=== PATIENT | male | born 1950 | race Caucasian/White ===

== ENCOUNTER → 2019-03-08 | Outpatient (CLI) | payer MEDICARE ==
[~2019-03-08] MED LIST: CELE200C PO; CYAN50003 PO; ESCI10TA10 PO; FOLI0.4T2 PO; IRON18TA PO; MAGN400C PO; METF500T17 PO; METH2.5T PO; SIMV20TA3 PO; Vitamin D3 PO
[2019-03-08 09:55] LABS: BASOPHILS # (AUTO) 0.05 x10^3/uL (0-0.1); BASOPHILS % (AUTO) 1 % (0-1); EOSINOPHILS # (AUTO) 0.15 x10^3/uL (0-0.4); EOSINOPHILS % (AUTO) 2 % (1-7); LYMPHOCYTES # (AUTO) 1.73 x10^3/uL (1-3.4); LYMPHOCYTES % (AUTO) 22 % (22-44); MD NO; MEAN CORPUSCULAR HGB CONC 32.8 g/dL (33.2-36.2); MEAN CORPUSCULAR VOLUME 97.5 fL (81-97); MEAN PLATELET VOLUME 8.3 fL (7.4-10.4); MONOCYTES % (AUTO) 10 % (2-9); NEUTROPHILS # (AUTO) 5.22 x10^3/uL (1.8-6.8); NEUTROPHILS % (AUTO) 66 % (42-75); PLATELET COUNT 380 x10^3/uL (130-400); RED BLOOD COUNT 4.39 x10^6/uL (4.38-5.82); RED CELL DISTRIBUTION WIDTH 14.4 % (9.4-14.8)
[2019-03-08 10:04] LABS: ALANINE AMINOTRANSFERASE 27 U/L (12-78); ALBUMIN 3.8 g/dL (3.4-5.0); ANION GAP 7 mmol/L (5-15); CALCIUM 8.6 mg/dL (8.5-10.1); CHLORIDE 108 mmol/L (98-107); CREATININE 1.07 mg/dL (0.7-1.3)
[2019-03-08 10:06] LABS: ALKALINE PHOSPHATASE 91 U/L (45-117); BILIRUBIN,TOTAL 0.3 mg/dL (0.2-1.0); TOTAL PROTEIN 7.3 g/dL (6.4-8.2)
== END | disposition home or self-care (01) ==
LOC: STAR 08:37
PROVIDERS: ATTEND Orthopaedic Surgery
DX: Z01.818 Encounter for other preprocedural examination (principal); M17.12 Unilateral primary osteoarthritis, left knee
CPT/HCPCS: 36415; 80053; 85025; 87081; 87147; 93005

== ENCOUNTER 2019-03-14 12:05 | Observation (INO) | payer MEDICARE ==
[~2019-03-14] VITALS: Ht 172.7 cm; Wt 88.0 kg
[~2019-03-14 12:05] MED LIST changes: +CEFAZOLIN PMX 1GM/50ML 50 ML IVPB SCH; +CLINDAMYCIN 150 MG/ML, 6ML ONE; +TRANEXAMIC ACID 100 MG/ML, 10ML ONE
[2019-03-14] MEDS ORDERED: LACTATED RINGERS 1,000 ML IV SCH (12:44)
[2019-03-14 12:48] VITALS: BP 138/91
[2019-03-14] MEDS ORDERED: GABAPENTIN 300 MG CAPSULE PO ONE (13:00)
[2019-03-14] MEDS ORDERED: ACETAMINOPHEN 500 MG TABLET PO ONE (13:00)
[2019-03-14] MEDS ORDERED: VANCOMYCIN PER PHARMACY MC PRN (13:00)
[2019-03-14] MEDS ORDERED: VANCOMYCIN 1,700 MG in SODIUM CHLORIDE 0.9% 250 ML IV ONE (13:00)
[2019-03-14] MEDS ORDERED: PHARMACOKINETIC CONSULTATION MC ONE (13:00)
[2019-03-14] MEDS ORDERED: FENTANYL PF 250 MCG/5ML ONE ×2 (13:04→17:22)
[2019-03-14] MEDS ORDERED: MIDAZOLAM 1 MG/ML, 2ML ONE (13:04)
[2019-03-14] MEDS ORDERED: PHENYLEPHRINE 10 MG/ML ONE (15:56)
[2019-03-14] MEDS ORDERED: EPINEPHRINE 1 MG/ML, 1ML ONE (17:05)
[2019-03-14] MEDS ORDERED: BUPIVACAINE/PF 0.5% ONE (17:05)
[2019-03-14] MEDS ORDERED: PROPOFOL 10 MG/ML, 20ML ONE (17:23)
[2019-03-14] MEDS ORDERED: DEXAMETHASONE 4 MG/ML, 1ML ONE (17:23)
[2019-03-14] MEDS ORDERED: ONDANSETRON 2MG/ML, 2ML ONE (17:23)
[2019-03-14] MEDS ORDERED: BUPIVACAINE/PF 0.25% ONE ×2 (17:23)
[2019-03-14] MEDS ORDERED: CEFAZOLIN 1,000 MG ONE (17:23)
[2019-03-14] MEDS ORDERED: FENTANYL PF 100 MCG/2ML ONE (17:56)
[2019-03-14] MEDS ORDERED: OXYcodone 5 MG/5 ML ORAL.SOL UDC ONE (17:56)
[2019-03-14] MEDS ORDERED: DIPHENHYDRAMINE 25 MG CAPSULE PO PRN (18:00)
[2019-03-14] MEDS ORDERED: METOPROLOL 1 MG/ML, 5ML IV PRN (18:00)
[2019-03-14] MEDS ORDERED: OXYcodone 5 MG/5 ML ORAL.SOL UDC PO PRN (18:00)
[2019-03-14] MEDS ORDERED: ACETAMINOPHEN 650 MG/20.3 ML UDC PO PRN (18:00)
[2019-03-14] MEDS ORDERED: hydrALAzine 20 MG/ML, 1ML IV PRN (18:00)
[2019-03-14] MEDS ORDERED: ONDANSETRON 4 MG TABLET PO PRN (18:00)
[2019-03-14] MEDS ORDERED: ALBUTEROL/IPRATROPIUM 2.5MG/0.5MG, 3 ML NPPB PRN (18:00)
[2019-03-14] MEDS ORDERED: HYDROmorphone 2 MG/ML, 1ML IVPush PRN (18:00)
[2019-03-14] MEDS: OXYcodone IR 5MG TABLET PO SCH (18:00)
[2019-03-14] MEDS ORDERED: MIDAZOLAM 1 MG/ML, 2ML IV PRN (18:00)
[2019-03-14] MEDS: PLEASE ENTER ALLERGIES MC SCH ×2 (18:00→23:46)
[2019-03-14] MEDS ORDERED: FENTANYL PF 100 MCG/2ML IV PRN (18:00)
[2019-03-14] MEDS ORDERED: PROMETHAZINE 25 MG/ML, 1ML IV PRN (18:00)
[2019-03-14] MEDS ORDERED: MEPERIDINE/PF 25MG/ML,1ML IVPush PRN (18:00)
[2019-03-14] MEDS ORDERED: DIAZEPAM 5 MG/ML, 2ML IVPush PRN (18:00)
[2019-03-14 19:52] VITALS: BP 133/80
[2019-03-14] MEDS: D5%-0.45% NACL 1,000 ML IV SCH (20:00)
[2019-03-14] MEDS ORDERED: SIMVASTATIN 20 MG TABLET PO SCH (21:00)
[2019-03-14] MEDS ORDERED: metFORMIN 500 MG TABLET PO SCH (21:00)
[2019-03-14] MEDS: MORPHINE SULFATE 4 MG/ML, 1ML IVPush PRN (21:01)
[2019-03-15] MEDS: OXYcodone IR 5MG TABLET PO SCH ×3 (00:06→11:46)
[2019-03-15] MEDS: CEFAZOLIN PMX 1GM/50ML 50 ML IVPB SCH ×2 (00:07→10:37)
[2019-03-15 00:21] VITALS: BP 126/74
[2019-03-15] MEDS: MORPHINE SULFATE 4 MG/ML, 1ML IVPush PRN ×3 (01:06→09:07)
[2019-03-15 04:42] VITALS: BP 97/63
[2019-03-15] MEDS: D5%-0.45% NACL 1,000 ML IV SCH ×2 (05:13→15:59)
[2019-03-15] MEDS ORDERED: ASPIRIN 325 MG TABLET PO SCH (06:00)
[2019-03-15 06:53] VITALS: BP 119/74
[2019-03-15] MEDS ORDERED: ESCITALOPRAM 10MG TABLET PO SCH (09:00)
[2019-03-15] MEDS ORDERED: VITAMIN D3 PO SCH (09:00)
[2019-03-15] MEDS ORDERED: MAGNESIUM OXIDE 400 MG TABLET PO SCH (09:00)
[2019-03-15] MEDS: PLEASE ENTER ALLERGIES MC SCH (10:00)
[2019-03-15 12:12] VITALS: BP 118/68
[2019-03-15 15:32] VITALS: BP 113/71
== END 2019-03-15 16:30 | disposition home or self-care (01) ==
LOC: OUT 12:05 → 4NE 17:34 → OUT 22:47
PROVIDERS: ADMIT Orthopaedic Surgery; ATTEND Orthopaedic Surgery
DX: M17.12 Unilateral primary osteoarthritis, left knee (principal); E11.9 Type 2 diabetes mellitus without complications; E78.5 Hyperlipidemia, unspecified; M81.0 Age-related osteoporosis without current pathological fracture; M06.9 Rheumatoid arthritis, unspecified; Z88.8 Allergy status to other drugs, medicaments and biological substances; Z79.899 Other long term (current) drug therapy
CPT/HCPCS: 27447; 73560; 82962; 96365; 96366; 96375; 96376; 97162; C1713; C1776; G0378; J0171; J0690; J1100; J2250; J2270; J2370; J2405; J2704; J3010; J3370; J3490; J7050; J7120; S0020; 96374